=== PATIENT | female | born 1940 | race African-American/Black ===

== ENCOUNTER 2017-07-16 20:59 | Emergency (ER) | payer MEDICARE, MEDICAID ==
[~2017-07-16] VITALS: Ht 160 cm; Wt 66.7 kg
[~2017-07-16 20:59] MED LIST: ACETAMINOPHEN-1 EAC1 ORAL; ACETAMINOPHEN325 M1 ORAL; ACULAR LS OP S1 DROP BOTH EYES; AMANTADINE100 M2 ORAL; AMBIEN5 MG ORAL; AMLODIPINE BENAZ; AMLODIPINE BES2.5 MG ORAL; ANTIHYPERTENSIVE; ASPIR-LOW81 MG PO; ASPIRIN81 MG ORAL; BENADRYL50 MG/ML IVP; BENAZEPRIL HCL10 MG ORAL; BISACODYL5 MG ORAL; CARAFATE1 G1 ORAL; CARISOPRODOL350 MG ORAL; CARVEDILOL3.125 MG ORAL; CARVEDILOL6.25 MG ORAL; CHLORTHALIDONE25 MG ORAL; CHLORTHALIDONE25 MG PO; COLACE100 MG ORAL; CYMBALTA20 MG ORAL; DICLOFENAC SODI75 MG ORAL; DOCUSATE SODIU100 MG ORAL; DSS250 MG ORAL; DULCOLAX10 MG RC; DUONEB 0.5 MG-33 ML IH; DUONEB 0.5-3(2.53 ML HHN; FLEET ENEMA133 ML RECTAL; HYDROCODON-ACE1 EAC8 ORAL; LOPRESSOR50 MG PO; METOPROLOL SUCC50 MG ORAL; MILK OF MA400 MG/51 ORAL; MIRALAX17 G2 ORAL; MOM30 ML ORAL; MYLANTA II30 ML ORAL; NITRO-BID1 GM TOPIC; NITROGLYCERIN0.4 MG SL; NITROSTAT0.4 M1 SL; NORCO 10-325 T1 EACH ORAL; NORCO 5-325 TA1 EAC1 ORAL; NORCO 5-325 TA1 EACH ORAL; NORVASC10 MG ORAL; NORVASC2.5 MG ORAL; NORVASC5 MG ORAL; OLANZAPINE2.5 MG ORAL; PROPRANOLOL HCL10 MG PO; PROTONIX40 MG ORAL; PROTONIX40 MG PO; RANITIDINE50 MG/2 ML IV; RESTORIL15 MG ORAL; SOMA PO; SOMA350 MG BC; SOMA350 MG PO; TYLENOL #31 TAB PO; TYLENOL650 MG/20. ORAL; UNOBMED; VICODIN 5-5001 EACH PO; VIGAMOX1 DROP BOTH EYES; ZOFRAN 4 MG4 MG/2 ML IVP; ZYPREXA ZYDIS5 MG ORAL; ZYPREXA2.5 MG ORAL; [UNRECOGNIZED DRUG - REMARK]
--- NOTE | 2017-07-16 21:17 | Emergency Room Report ---
History of Present Illness General Chief Complaint: Chest Pain Source: Patient Present Illness HPI Is a 76-year-old female with a GI blood pressure. She presents with chief complaint of chest pain. It has been ongoing all day. Initially she came in as a Niki Narvaez. She look for pneumonia to me. I noticed that she has an armband in her purse. She was recently at a hospital in [place] about a week ago under her real name Niki Cox. I look up that name, she been here numerous times. She's also been to other outside hospital for same complaint. She has a history of chronic chest pain. She goes from different hospital. Workup has been negative. EMS gave her aspirin and nitroglycerin with did not help. Pain is chest. Achy nature. No exertional component. No diaphoresis. No shortness of breath. No radiation. Allergies: Coded Allergies: MORPHINE (Verified Adverse Reaction, Unknown, Itching, 08/20/15) Patient History Past Medical History: see triage record, old chart reviewed, HTN Past Surgical History: other Pertinent Family History: none Social History: Denies: smoking Last Menstrual Period: NONE Now: No Immunizations: other Reviewed Nursing Documentation: PMH: Agreed, PSxH: Agreed Nursing Documentation-PMH Hx Hypertension: Yes - HIGH CHOLESTEROL Review of Systems Eye: Denies: eye pain, blurred vision ENT: Denies: ear pain, nose congestion, throat swelling Respiratory: Denies: cough, shortness of breath Cardiovascular: Reports: chest pain, Denies: palpitations Gastrointestinal: Denies: abdominal pain, diarrhea, nausea, vomiting Musculoskeletal: Denies: back pain, joint pain Skin: Denies: rash Neurological: Denies: headache, numbness Endocrine: Denies: increased thirst, increased urine Hematologic/Lymphatic: Denies: easy bruising All Other Systems: negative except mentioned in HPI Physical Exam Vital Signs Date Time Temp Pulse Resp B/P (MAP) Pulse Ox O2 Delivery O2 Flow Rate FiO2 07/16/17 20:49 98.4 84 16 125/102 97 Room Air vitals unremarkable Sp02 EP Interpretation: reviewed, normal General Appearance: well appearing, no apparent distress, alert Head: normocephalic, atraumatic Eyes: bilateral eye PERRL, bilateral eye EOMI ENT: hearing grossly normal, normal pharynx Neck: full range of motion, supple, no meningismus Respiratory: chest non-tender, lungs clear, normal breath sounds Cardiovascular #1: regular rate, rhythm, no murmur Gastrointestinal: normal bowel sounds, non tender, no mass, no organomegaly, no bruit, non-distended Musculoskeletal: back normal, gait/station normal, normal range of motion Psychiatric: mood/affect normal Skin: warm/dry Medical Decision Making Diagnostic Impression: Primary Impression: Chest pain Qualified Codes: R07.9 - Chest pain, unspecified Additional Impression: Opiate dependence Qualified Codes: F11.20 - Opioid dependence, uncomplicated ER Course Patient presents with atypical chest pain. She been admitted and worked up multiple times at different hospitals already. I suspect there is a psychological component to this. No evidence of ACS, PE, dissection to name a few. No EKG changes. Troponin negative. We'll discharge home. She said that she is not homeless. EKG Diagnostic Results EKG Time: 21:16 Rate: normal Rhythm: NSR ST Segments: no acute changes Rhythm Strip Diag. Results Rhythm Strip Time: 21:16 EP Interpretation: yes Rate: 65 Rhythm: NSR Last Vital Signs Date Time Temp Pulse Resp B/P (MAP) Pulse Ox O2 Delivery O2 Flow Rate FiO2 07/16/17 20:49 98.4 84 16 125/102 97 Room Air Status: improved Disposition: HOME, SELF-CARE Condition: Stable Scripts Ibuprofen* (MOTRIN*) 600 Mg Tablet 600 MG ORAL THREE TIMES A DAY, #30 TAB 0 Refills Prov: FRED KUMAR M.D. 07/16/17 Patient Instructions: Nonspecific Chest Pain Additional Instructions: Followup with your DrLatonya in 7 days. Return if symptom worsen. FRED KUMAR M.D. Jul 16, 2017 21:17
[2017-07-16 22:15] LABS: TROPONIN I < 0.30 ng/mL (<=0.30)
[2017-07-16] MEDS ORDERED: Ketorolac 30mg Inj IV ONE (22:15)
[2017-07-16] MEDS ORDERED: IBUPROFEN600 MG ORAL (22:18)
[2017-07-16 22:30] VITALS: BP 137/62
--- NOTE | 2017-07-18 16:25 | Cardiology Report ---
APPROVED REPORT EKG Measurement Heart [id number] Normal sinus rhythm Nonspecific T wave abnormality Abnormal ECG
== END 2017-07-16 22:30 | disposition home or self-care (01) ==
LOC: EDUNIT# 20:59 → EDBD 20:59 → EMR 21:33
DX: R07.9 Chest pain, unspecified (principal); F11.20 Opioid dependence, uncomplicated; Z88.6 Allergy status to analgesic agent; I10 Essential (primary) hypertension
CPT/HCPCS: 84484; 93005; 96374; 99284

== ENCOUNTER 2017-07-30 01:42 | Emergency (ER) | payer MEDICARE, MEDICAID ==
[~2017-07-30] VITALS: Ht 160 cm; Wt 66.7 kg
[~2017-07-30 01:42] MED LIST changes: +IBUPROFEN600 MG ORAL; +METOPROLOL TART25 MG ORAL
--- NOTE | 2017-07-30 01:58 | Emergency Room Report ---
History of Present Illness General Chief Complaint: Chest Pain Source: Patient Present Illness HPI This is a 76-year-old female who said she's not homeless. She present with chief complaint of chest pain. This is a chronic problem for her. She's been to multiple hospital for the same thing. She was just at [facility] yesterday. She has a discharge paperwork in her purse. I saw her a couple weeks ago for the same thing. She presents with chest pain is in her chest. No radiation. No relief with aspirin or nitroglycerin by EMS. Denies any other complaint. No nausea no vomiting. No exertional component. No diaphoresis. No radiation. Allergies: Coded Allergies: MORPHINE (Verified Adverse Reaction, Unknown, Itching, 08/20/15) Patient History Past Medical History: see triage record, old chart reviewed Past Surgical History: other Pertinent Family History: none Social History: Denies: smoking Now: No Immunizations: other Reviewed Nursing Documentation: PMH: Agreed, PSxH: Agreed Nursing Documentation-PMH Past Medical History: No History, Except For Hx Hypertension: Yes Hx Pacemaker: No Hx COPD: Yes Hx Cancer: No Hx Gastrointestinal Problems: No Hx Neurological Problems: No Hx Vertigo: Yes Hx Dizziness: Yes Hx Syncope: Yes - "passed out once or twice," as per pt. Hx Headaches: Yes Hx Numbness: Yes - cramping in bilateral feet and hands at times Hx Weakness: Yes Hx Fatigue: Yes - loss of sleep Review of Systems Eye: Denies: eye pain, blurred vision ENT: Denies: ear pain, nose congestion, throat swelling Respiratory: Denies: cough, shortness of breath Cardiovascular: Reports: chest pain, Denies: palpitations Gastrointestinal: Denies: abdominal pain, diarrhea, nausea, vomiting Musculoskeletal: Denies: back pain, joint pain Skin: Denies: rash Neurological: Denies: headache, numbness Endocrine: Denies: increased thirst, increased urine Hematologic/Lymphatic: Denies: easy bruising All Other Systems: negative except mentioned in HPI Physical Exam Vital Signs Date Time Temp Pulse Resp B/P (MAP) Pulse Ox O2 Delivery O2 Flow Rate FiO2 07/30/17 01:34 98.2 70 16 143/86 96 Room Air vitals unremarkable Sp02 EP Interpretation: reviewed, normal General Appearance: well appearing, no apparent distress, alert Head: normocephalic, atraumatic Eyes: bilateral eye PERRL, bilateral eye EOMI ENT: hearing grossly normal, normal pharynx Neck: full range of motion, supple, no meningismus Respiratory: chest non-tender, lungs clear, normal breath sounds Cardiovascular #1: regular rate, rhythm, no murmur Gastrointestinal: normal bowel sounds, non tender, no mass, no organomegaly, no bruit, non-distended Musculoskeletal: back normal, gait/station normal, normal range of motion, other - She has multiple bruises from IV stick and her upper extremities. Psychiatric: mood/affect normal Skin: warm/dry Medical Decision Making Diagnostic Impression: Primary Impression: Chest pain Qualified Codes: R07.9 - Chest pain, unspecified ER Course Patient presents with chest pain. I suspect there is a high psychogenic component to this. She has very poor IV access. I attempted to do an arterial stick for blood. Patient keep jerking away. I did one stick had a flash but the patient pulled back. Attempted to do again but she refused. She said that she doesn't want to stay any longer. Patient is otherwise stable. She is competent to make that decision. I highly doubt that her chest pain is cardiac in nature. But because of her age I want to rule out with workup. Her pain been ongoing for several hours now. patient decided to stay. We'll check troponin. I gave her Motrin for pain. EKG Diagnostic Results Rate: normal Rhythm: NSR ST Segments: no acute changes Rhythm Strip Diag. Results EP Interpretation: yes Rate: 65 Rhythm: NSR Last Vital Signs Date Time Temp Pulse Resp B/P (MAP) Pulse Ox O2 Delivery O2 Flow Rate FiO2 07/30/17 01:34 98.2 70 16 143/86 96 Room Air Status: unchanged Disposition: HOME, SELF-CARE Condition: Stable Patient Instructions: Nonspecific Chest Pain Additional Instructions: Followup with your Dr. in 7 days. If symptom worsen. You may take Motrin for your pain. FRED KUMAR M.D. Jul 30, 2017 01:58
[2017-07-30 02:05] VITALS: BP 140/82
[2017-07-30 02:33] LABS: TROPONIN I < 0.30 ng/mL (<=0.30)
[2017-07-30 03:10] VITALS: BP 138/79
[2017-07-30 03:20] VITALS: BP 136/72
--- NOTE | 2017-07-30 19:03 | Cardiology Report ---
APPROVED REPORT EKG Measurement Heart [id number] Normal sinus rhythm Nonspecific T wave abnormality Abnormal ECG
== END 2017-07-30 03:05 | disposition home or self-care (01) ==
LOC: EDBD 01:42 → EMR 01:55
DX: R07.9 Chest pain, unspecified (principal); I10 Essential (primary) hypertension; J44.9 Chronic obstructive pulmonary disease, unspecified
CPT/HCPCS: 84484; 93005; 99283

== ENCOUNTER 2017-07-30 04:45 | Emergency (ER) | payer MEDICARE, MEDICAID ==
[~2017-07-30] VITALS: Ht 160 cm; Wt 65.8 kg
[2017-07-30 04:45] VITALS: BP 146/81
--- NOTE | 2017-07-30 05:02 | Emergency Room Report ---
History of Present Illness General Chief Complaint: General Complaint Source: Patient Present Illness HPI Is a 76-year-old female whom I saw earlier this evening. Patient has history of chronic chest pain and narcotic seeking. She was just discharged from one [facility]. She's been to several hospital and recently. She had negative troponin here. She has chronic chest pain has been ongoing for months and years. She was discharged and was walking toward [facility]. She said her car 911 was brought back here. EMS gave her nitroglycerin and aspirin and it didn't do anything for her. She is requesting narcotic. No other complaint. No exertional component. No diaphoresis. No radiation. No shortness of breath. Allergies: Coded Allergies: MORPHINE (Verified Adverse Reaction, Unknown, Itching, 08/20/15) Patient History Past Medical History: see triage record, old chart reviewed Past Surgical History: other Pertinent Family History: none Social History: Denies: drug use Now: No Immunizations: other Reviewed Nursing Documentation: PMH: Agreed, PSxH: Agreed Nursing Documentation-PMH Hx Hypertension: Yes Hx Pacemaker: No Hx COPD: Yes Hx Cancer: No Hx Gastrointestinal Problems: No Hx Neurological Problems: No Hx Vertigo: Yes Hx Dizziness: Yes Hx Syncope: Yes - "passed out once or twice," as per pt. Hx Headaches: Yes Hx Numbness: Yes - cramping in bilateral feet and hands at times Hx Weakness: Yes Hx Fatigue: Yes - loss of sleep Review of Systems Eye: Denies: eye pain, blurred vision ENT: Denies: ear pain, nose congestion, throat swelling Respiratory: Denies: cough, shortness of breath Cardiovascular: Reports: chest pain, Denies: palpitations Gastrointestinal: Denies: abdominal pain, diarrhea, nausea, vomiting Musculoskeletal: Denies: back pain, joint pain Skin: Denies: rash Neurological: Denies: headache, numbness Endocrine: Denies: increased thirst, increased urine Hematologic/Lymphatic: Denies: easy bruising All Other Systems: negative except mentioned in HPI Physical Exam Vital Signs Date Time Temp Pulse Resp B/P (MAP) Pulse Ox O2 Delivery O2 Flow Rate FiO2 07/30/17 04:36 98.2 77 20 146/81 99 Room Air vitals normal Sp02 EP Interpretation: reviewed, normal General Appearance: well appearing, no apparent distress, alert Head: normocephalic, atraumatic Eyes: bilateral eye PERRL, bilateral eye EOMI ENT: hearing grossly normal, normal pharynx Neck: full range of motion, supple, no meningismus Respiratory: chest non-tender, lungs clear, normal breath sounds Cardiovascular #1: regular rate, rhythm, no murmur Gastrointestinal: normal bowel sounds, non tender, no mass, no organomegaly, no bruit, non-distended Musculoskeletal: back normal, gait/station normal, normal range of motion Neurologic: alert, oriented x3 Psychiatric: mood/affect normal Skin: warm/dry Medical Decision Making Diagnostic Impression: Primary Impression: Chest pain Qualified Codes: R07.9 - Chest pain, unspecified Additional Impression: Opiate dependence Qualified Codes: F11.20 - Opioid dependence, uncomplicated ER Course Patient presents with her typical chest pain. She has multiple workup in the past. I see no need for further workup here. She claimed that she's not homeless. She has a place to go. We'll discharge home. I see no evidence of ACS, PE, dissection, pneumonia to name a few. Last Vital Signs Date Time Temp Pulse Resp B/P (MAP) Pulse Ox O2 Delivery O2 Flow Rate FiO2 07/30/17 04:45 98.2 77 20 146/81 99 Room Air Status: unchanged Disposition: HOME, SELF-CARE Condition: Stable Additional Instructions: Followup with your Dr. in 7 days. Take Motrin for your pain. Return if worse. FRED KUMAR M.D. Jul 30, 2017 05:02
[2017-07-30 05:08] VITALS: BP 146/81
== END 2017-07-30 05:15 | disposition home or self-care (01) ==
LOC: EDBD 04:45 → EMR 05:10
DX: R07.9 Chest pain, unspecified (principal); F11.20 Opioid dependence, uncomplicated; Z88.6 Allergy status to analgesic agent; I10 Essential (primary) hypertension; J44.9 Chronic obstructive pulmonary disease, unspecified
CPT/HCPCS: 99282

== ENCOUNTER 2017-08-08 18:34 | Emergency (ER) | payer MEDICARE, MEDICAID ==
[~2017-08-08] VITALS: Ht 160 cm; Wt 66.7 kg
[2017-08-08 19:25] LABS: MEAN CORPUSCULAR HGB CONC 32.3 G/DL (32.0-36.0); MEAN CORPUSCULAR VOLUME 93 FL (80-99); MEAN PLATELET VOLUME 6.8 FL (6.5-10.1); PLATELET COUNT 202 K/UL (150-450); RED BLOOD COUNT 3.79 M/UL (4.20-5.40); RED CELL DISTRIBUTION WIDTH 12.7 % (11.6-14.8); WHITE BLOOD COUNT 3.4 K/UL (4.8-10.8)
[2017-08-08 19:27] LABS: BASOPHILS % (AUTO) 0.6 % (0.0-2.0); EOSINOPHILS % (AUTO) 2.1 % (0.0-3.0); LYMPHOCYTES % (AUTO) 44.7 % (20.0-45.0); NEUTROPHILS % (AUTO) 46.6 % (45.0-75.0)
[2017-08-08 19:41] LABS: TROPONIN I < 0.30 ng/mL (<=0.30)
[2017-08-08 19:44] LABS: ALANINE AMINOTRANSFERASE 9 U/L (3-33); ALBUMIN/GLOBULIN RATIO 1.6 (1.0-2.7); ANION GAP 10 (5-15); ASPARTATE AMINO TRANSFERASE 15 U/L (5-40); CALCIUM 9.3 mg/dL (8.6-10.2); CARBON DIOXIDE 28 mEQ/L (20-30); CHLORIDE 104 mEQ/L (98-107); CREATININE 0.7 mg/dL (0.5-0.9); HEMOLYSIS 2; POTASSIUM 3.5 mEQ/L (3.4-4.9); SODIUM 142 mEQ/L (135-145); TOTAL PROTEIN 6.8 g/dL (6.6-8.7)
[2017-08-08 20:25] VITALS: BP 153/86
[2017-08-08 20:34] VITALS: BP 153/86
--- NOTE | 2017-08-08 21:48 | Emergency Room Report ---
History of Present Illness General Chief Complaint: Chest Pain Source: Patient, EMS Present Illness HPI 77-year-old female presents to ED complaining of chest pain. States chest pain started approximately 30 minutes prior to arrival. Pain is sharp, left-sided, 10 out of 10. Patient was given aspirin and nitroglycerin by EMS without relief. Per EMS patient comes to hospital multiple times for similar presentation. Patient is well-known to home she has been here multiple times under this name and other names. Denies smoking or drug use. No other aggravating or leading factors. Denies any other associated symptoms Allergies: Coded Allergies: MORPHINE (Verified Adverse Reaction, Unknown, Itching, 08/20/15) Patient History Past Medical History: HTN, COPD Past Surgical History: none Pertinent Family History: none Social History: Denies: smoking, alcohol use, drug use Now: No Immunizations: UTD Reviewed Nursing Documentation: PMH: Agreed, PSxH: Agreed Nursing Documentation-PMH Hx Hypertension: Yes Hx Pacemaker: No Hx COPD: Yes Hx Cancer: No Hx Gastrointestinal Problems: No Hx Neurological Problems: No Hx Vertigo: Yes Hx Dizziness: Yes Hx Syncope: Yes - "passed out once or twice," as per pt. Hx Headaches: Yes Hx Numbness: Yes - cramping in bilateral feet and hands at times Hx Weakness: Yes Hx Fatigue: Yes - loss of sleep Review of Systems All Other Systems: negative except mentioned in HPI Physical Exam Vital Signs Date Time Temp Pulse Resp B/P (MAP) Pulse Ox O2 Delivery O2 Flow Rate FiO2 08/08/17 18:41 97.9 86 18 154/86 98 Room Air Sp02 EP Interpretation: reviewed, normal General Appearance: no apparent distress, alert, GCS 15, non-toxic Head: normocephalic, atraumatic Eyes: bilateral eye normal inspection, bilateral eye PERRL ENT: hearing grossly normal, normal pharynx, no angioedema, normal voice Neck: full range of motion, supple/symm/no masses Respiratory: chest non-tender, lungs clear, normal breath sounds, speaking full sentences Cardiovascular #1: regular rate, rhythm, no edema Cardiovascular #2: 2+ carotid (R), 2+ carotid (L), 2+ radial (R), 2+ radial (L) , 2+ dorsalis pedis (R), 2+ dorsalis pedis (L) Gastrointestinal: normal bowel sounds, non tender, soft, non-distended, no guarding, no rebound Rectal: deferred Genitourinary: normal inspection, no CVA tenderness Musculoskeletal: back normal, gait/station normal, normal range of motion, non- tender Neurologic: alert, oriented x3, responsive, motor strength/tone normal, sensory intact, speech normal Psychiatric: judgement/insight normal, memory normal, mood/affect normal, no suicidal/homicidal ideation Reflexes: 3+ bicep (R), 3+ bicep (L), 3+ tricep (R), 3+ tricep (L), 3+ knee (R) , 3+ knee (L) Skin: normal color, no rash, warm/dry, well hydrated Lymphatic: no adenopathy Medical Decision Making Diagnostic Impression: Primary Impression: Chest pain Additional Impression: Opiate dependence Qualified Codes: F11.29 - Opioid dependence with unspecified opioid-induced disorder ER Course Hospital Course 77-year-old F presents ED complaining of chest pain Differential diagnoses include: Rib fracture, PA/unstable angina, contusion, muscle strain Clinical course Patient placed on stretcher. After initial history and physical I ordered labs , EKG labs reviewed- all electrolytes normal, troponins negative, no leukocytosis, hemoglobin/hematocrit stable EKG - NSR, no acute ischemic changes interpreted by me I reviewed EMR. Patient has been here 3 times this month for similar chest pain. Patient always requesting narcotic medications. Patient refuses workup and treatment when she is offered non-narcotic medications Patient refuses Tylenol here. Wants to be discharged I. I feel this is a highly complex case requiring extensive working including EKG/Rhythm strip, Xray/CT/US, Blood/urine lab work, repeat exams while in ED, and administration of strong opiates/narcotics for pain control, admission to hospital or close patient follow up. Diagnosis - chest pain , opiate dependence Stable and discharged to home. Instructed to followup with PMD. Return to ED if symptoms recur or worsen Labs Test 08/08/17 19:14 White Blood Count 3.4 K/UL (4.8-10.8) Red Blood Count 3.79 M/UL (4.20-5.40) Hemoglobin 11.4 G/DL (12.0-16.0) Hematocrit 35.3 % (37.0-47.0) Mean Corpuscular Volume 93 FL (80-99) Mean Corpuscular Hemoglobin 30.0 PG (27.0-31.0) Mean Corpuscular Hemoglobin Concent 32.3 G/DL (32.0-36.0) Red Cell Distribution Width 12.7 % (11.6-14.8) Platelet Count 202 K/UL (150-450) Mean Platelet Volume 6.8 FL (6.5-10.1) Neutrophils (%) (Auto) 46.6 % (45.0-75.0) Lymphocytes (%) (Auto) 44.7 % (20.0-45.0) Monocytes (%) (Auto) 6.0 % (1.0-10.0) Eosinophils (%) (Auto) 2.1 % (0.0-3.0) Basophils (%) (Auto) 0.6 % (0.0-2.0) Sodium Level 142 mEQ/L (135-145) Potassium Level 3.5 mEQ/L (3.4-4.9) Chloride Level 104 mEQ/L (98-107) Carbon Dioxide Level 28 mEQ/L (20-30) Anion Gap 10 (5-15) Blood Urea Nitrogen 13 mg/dL (7-23) Creatinine 0.7 mg/dL (0.5-0.9) Estimat Glomerular Filtration Rate mL/min (>60) Glucose Level 86 mg/dL (74-106) Calcium Level 9.3 mg/dL (8.6-10.2) Total Bilirubin 0.3 mg/dL (0.0-1.2) Aspartate Amino Transf (AST/SGOT) 15 U/L (5-40) Alanine Aminotransferase (ALT/SGPT) 9 U/L (3-33) Alkaline Phosphatase 47 U/L (35-104) Troponin I < 0.30 ng/mL (<=0.30) Total Protein 6.8 g/dL (6.6-8.7) Albumin 4.2 g/dL (3.5-5.2) Globulin 2.6 g/dL Albumin/Globulin Ratio 1.6 (1.0-2.7) EKG Diagnostic Results Rate: normal Rhythm: NSR ST Segments: no acute changes ASA given to the pt in ED: No Rhythm Strip Diag. Results EP Interpretation: yes Rhythm: NSR, no PVC's, no ectopy Last Vital Signs Date Time Temp Pulse Resp B/P (MAP) Pulse Ox O2 Delivery O2 Flow Rate FiO2 08/08/17 20:34 77 24 153/86 99 Room Air 08/08/17 20:25 97.9 Status: improved Disposition: HOME, SELF-CARE Condition: Improved Referrals: NOT CHOSEN IPA/,REFERRING (PCP) Patient Instructions: Nonspecific Chest Pain PAMELA ROSARIO M.D. Aug 08, 2017 21:48
== END 2017-08-08 20:30 | disposition home or self-care (01) ==
LOC: EDBD 18:34 → EMR 20:00
DX: R07.89 Other chest pain (principal); F11.20 Opioid dependence, uncomplicated; I10 Essential (primary) hypertension; J44.9 Chronic obstructive pulmonary disease, unspecified; Z88.6 Allergy status to analgesic agent
CPT/HCPCS: 36415; 80053; 84484; 85025; 93005; 99284

== ENCOUNTER 2018-05-06 23:03 | Emergency (ER) | payer MEDICARE, OTHER ==
[~2018-05-06] VITALS: Ht 160 cm; Wt 75.3 kg
[2018-05-06] MEDS ORDERED: Aspirin Baby 81mg ORAL ONE (23:45)
[2018-05-06 23:54] LABS: APPEARANCE,URINE CLEAR; BILIRUBIN, URINE NEGATIVE (NEGATIVE); COLOR,URINE PALE YELLOW; GLUCOSE, URINE (UA) NEGATIVE (NEGATIVE); KETONES,URINE NEGATIVE (NEGATIVE); LEUKOCYTE ESTERASE ,URINE 2+ (NEGATIVE); NITRITE,URINE NEGATIVE (NEGATIVE); PH,URINE 6 (4.5-8.0); PROTEIN,URINE NEGATIVE (NEGATIVE); UROBILINOGEN,URINE NORMAL MG/DL (0.0-1.0)
[2018-05-07] MEDS ORDERED: CEPHALEXIN500 MG ORAL (00:22)
--- NOTE | 2018-05-07 00:22 | Emergency Room Report ---
History of Present Illness General Chief Complaint: Chest Pain Source: Patient Present Illness HPI Is a 77-year-old female well-known to this ER. She presents with chief complaint of chest pain. This is a chronic issue for her. She has chronic chest pain. Workup has been negative. She said his been ongoing for last 2 days patient she's been to multiple hospitals. She said she was recently at [facility] in [place]. Pain has no radiation. She is asking for narcotic. No diaphoresis patient walking without any difficulty. Her second complaint is pelvic pain. She said she has some dysuria has been ongoing for 2 days also. No fever chills but no nausea no vomiting. No hematuria. Allergies: Coded Allergies: MORPHINE (Verified Adverse Reaction, Unknown, Itching, 08/20/15) Patient History Past Medical History: see triage record, old chart reviewed Past Surgical History: other Pertinent Family History: none Social History: Denies: smoking Last Menstrual Period: NA Now: No Immunizations: other Reviewed Nursing Documentation: PMH: Agreed; PSxH: Agreed Nursing Documentation-PMH Hx Hypertension: Yes Hx Pacemaker: No Hx COPD: Yes Hx Cancer: No Hx Gastrointestinal Problems: No Hx Neurological Problems: No Hx Vertigo: Yes Hx Dizziness: Yes Hx Syncope: Yes - "passed out once or twice," as per pt. Hx Headaches: Yes Hx Numbness: Yes - cramping in bilateral feet and hands at times Hx Weakness: Yes Hx Fatigue: Yes - loss of sleep Review of Systems Eye: Denies: eye pain, blurred vision ENT: Denies: ear pain, nose congestion, throat swelling Respiratory: Denies: cough, shortness of breath Cardiovascular: Reports: chest pain; Denies: palpitations Gastrointestinal: Denies: abdominal pain, diarrhea, nausea, vomiting Genitourinary: Reports: dysuria Musculoskeletal: Denies: back pain, joint pain Skin: Denies: rash Neurological: Denies: headache, numbness Endocrine: Denies: increased thirst, increased urine Hematologic/Lymphatic: Denies: easy bruising All Other Systems: negative except mentioned in HPI Physical Exam Vital Signs Date Time Temp Pulse Resp B/P (MAP) Pulse Ox O2 Delivery O2 Flow Rate FiO2 05/06/18 23:05 97.7 80 18 109/69 98 Room Air 97.7 vitals normal Sp02 EP Interpretation: reviewed, normal General Appearance: well appearing, no apparent distress, alert Head: normocephalic, atraumatic Eyes: bilateral eye PERRL, bilateral eye EOMI ENT: hearing grossly normal, normal pharynx Neck: full range of motion, supple, no meningismus Respiratory: chest non-tender, lungs clear, normal breath sounds Cardiovascular #1: regular rate, rhythm, no murmur Gastrointestinal: normal bowel sounds, non tender, no mass, no organomegaly, no bruit, non-distended Musculoskeletal: back normal, gait/station normal, normal range of motion Psychiatric: mood/affect normal Skin: warm/dry Medical Decision Making Diagnostic Impression: Primary Impression: Chest pain Qualified Codes: R07.9 - Chest pain, unspecified Additional Impressions: Chronic pain Qualified Codes: G89.4 - Chronic pain syndrome Opiate dependence Qualified Codes: F11.20 - Opioid dependence, uncomplicated UTI (urinary tract infection) Qualified Codes: N30.00 - Acute cystitis without hematuria ER Course Patient presents with chronic chest pain. She keep asking for narcotics. I see no evidence of ACS, PE, dissection. She may have a mild urinary tract infection. We'll go ahead and treat. We'll discharge home. EKG Diagnostic Results Rate: normal Rhythm: NSR ST Segments: no acute changes Rhythm Strip Diag. Results Rhythm Strip Time: 00:21 EP Interpretation: yes Rate: 70 Rhythm: NSR, no PVC's, no ectopy Last Vital Signs Date Time Temp Pulse Resp B/P (MAP) Pulse Ox O2 Delivery O2 Flow Rate FiO2 05/06/18 23:44 80 18 Room Air 05/06/18 23:05 97.7 109/69 98 97.7 Status: unchanged Disposition: HOME, SELF-CARE Condition: Stable Scripts Cephalexin* (KEFLEX*) 500 Mg Capsule 500 MG ORAL TID, #21 CAP Prov: FRED KUMAR M.D. 05/07/18 Patient Instructions: Nonspecific Chest Pain Additional Instructions: follow-up with your DrLatonya in 2-3 days. Return if symptoms worsen. FRED KUMAR M.D. May 07, 2018 00:22
[2018-05-07 00:29] VITALS: BP 109/69
[2018-05-07] MEDS ORDERED: Cephalexin 500mg cap ORAL ONE (00:30)
== END 2018-05-07 00:29 | disposition home or self-care (01) ==
LOC: EMR 23:30
DX: R07.9 Chest pain, unspecified (principal); G89.29 Other chronic pain; I10 Essential (primary) hypertension; J44.9 Chronic obstructive pulmonary disease, unspecified; Z88.5 Allergy status to narcotic agent; N39.0 Urinary tract infection, site not specified; F11.20 Opioid dependence, uncomplicated
CPT/HCPCS: 81003; 84484; 93005; 99281

== ENCOUNTER 2018-05-07 02:12 | Emergency (ER) | payer MEDICARE, OTHER ==
[~2018-05-07 02:12] MED LIST changes: +CEPHALEXIN500 MG ORAL
--- NOTE | 2018-05-07 02:26 | Emergency Room Report ---
History of Present Illness General Source: Patient, Medical Record, EMS Present Illness HPI Is a 77-year-old female with a history of chronic chest pain. She presents with chief complaint of chest pain. She was just seen and discharged not too long ago. [place] was at the bus stop and walked about a block away and called 911. They brought her back. They gave her nitroglycerin and aspirin. Did not help with her pain. She told me that she is not homeless. On arrival she wanted pain medication. Pain is been ongoing for the last 2 days. No other complaint. No radiation. Nothing made it better. Nothing made it worse. Allergies: Coded Allergies: MORPHINE (Verified Adverse Reaction, Unknown, Itching, 08/20/15) Patient History Past Medical History: see triage record, old chart reviewed Past Surgical History: other Pertinent Family History: none Social History: Denies: smoking Now: No Immunizations: other Reviewed Nursing Documentation: PMH: Agreed; PSxH: Agreed Nursing Documentation-PMH Hx Hypertension: Yes Hx Pacemaker: No Hx COPD: Yes Hx Cancer: No Hx Gastrointestinal Problems: No Hx Neurological Problems: No Hx Vertigo: Yes Hx Dizziness: Yes Hx Syncope: Yes - "passed out once or twice," as per pt. Hx Headaches: Yes Hx Numbness: Yes - cramping in bilateral feet and hands at times Hx Weakness: Yes Hx Fatigue: Yes - loss of sleep Review of Systems Eye: Denies: eye pain, blurred vision ENT: Denies: ear pain, nose congestion, throat swelling Respiratory: Denies: cough, shortness of breath Cardiovascular: Reports: chest pain; Denies: palpitations Gastrointestinal: Denies: abdominal pain, diarrhea, nausea, vomiting Musculoskeletal: Denies: back pain, joint pain Skin: Denies: rash Neurological: Denies: headache, numbness Endocrine: Denies: increased thirst, increased urine Hematologic/Lymphatic: Denies: easy bruising All Other Systems: negative except mentioned in HPI Physical Exam patient refused vitals Sp02 EP Interpretation: reviewed, normal General Appearance: well appearing, no apparent distress, alert Head: normocephalic, atraumatic Eyes: bilateral eye PERRL, bilateral eye EOMI ENT: hearing grossly normal, normal pharynx Neck: full range of motion, supple, no meningismus Respiratory: chest non-tender, lungs clear, normal breath sounds Cardiovascular #1: regular rate, rhythm, no murmur Gastrointestinal: normal bowel sounds, non tender, no mass, no organomegaly, no bruit, non-distended Musculoskeletal: back normal, gait/station normal, normal range of motion Psychiatric: mood/affect normal Skin: warm/dry Medical Decision Making Diagnostic Impression: Primary Impression: Chest pain Qualified Codes: R07.9 - Chest pain, unspecified Additional Impressions: Opiate dependence Qualified Codes: F11.20 - Opioid dependence, uncomplicated Chronic pain Qualified Codes: G89.4 - Chronic pain syndrome ER Course Patient with chronic pain. When I told her that I would not give her narcotics , she got up and walked out of the ER. She did not get any vitals because she left prior to this. Status: unchanged Disposition: HOME, SELF-CARE Condition: Stable FRED KUMAR M.D. May 07, 2018 02:26
== END 2018-05-07 03:00 | disposition left against medical advice (07) ==
LOC: EDBD 02:12 → EMR 02:30
DX: R07.9 Chest pain, unspecified (principal); G89.29 Other chronic pain; F11.20 Opioid dependence, uncomplicated; I10 Essential (primary) hypertension; J44.9 Chronic obstructive pulmonary disease, unspecified
CPT/HCPCS: 99283

== ENCOUNTER 2018-08-09 16:51 | Emergency (ER) | payer MEDICARE, OTHER ==
[~2018-08-09] VITALS: Ht 157.5 cm; Wt 77.1 kg
[2018-08-09] MEDS ORDERED: NKM (16:54)
[2018-08-09 17:27] LABS: EOSINOPHILS % (AUTO) 1.5 % (0.0-3.0); HEMOGLOBIN 11.4 G/DL (12.0-16.0); LYMPHOCYTES % (AUTO) 40.8 % (20.0-45.0); MEAN CORPUSCULAR VOLUME 89 FL (80-99); MONOCYTES % (AUTO) 7.8 % (1.0-10.0); NEUTROPHILS % (AUTO) 48.9 % (45.0-75.0); PLATELET COUNT 246 K/UL (150-450); RED BLOOD COUNT 3.69 M/UL (4.20-5.40); WHITE BLOOD COUNT 4.1 K/UL (4.8-10.8)
[2018-08-09] MEDS ORDERED: Acetaminophen 500mg (ES) tab ORAL ONE (17:30)
[2018-08-09 17:36] LABS: ANION GAP 8 mmol/L (5-15); BLOOD UREA NITROGEN 14 mg/dL (7-18); CALCIUM 8.8 MG/DL (8.5-10.1); CARBON DIOXIDE 27 MMOL/L (21-32); CHLORIDE 105 MMOL/L (98-107); CREATININE 0.8 MG/DL (0.55-1.30); POTASSIUM 3.2 MMOL/L (3.5-5.1); SODIUM 140 MMOL/L (136-145)
--- NOTE | 2018-08-09 17:41 | Emergency Room Report ---
History of Present Illness General Chief Complaint: Chest Pain Source: Patient, EMS Present Illness HPI Patient is a 78-year-old female who presented after chest pain. Patient reports having the pain for 2 days. This of been constant in nature. Patient had multiple the previous visits for similar type symptoms. Patient had prior history of costochondritis. The patient reportedly had been out of her pain medications. She had previously been on opiate pain medications for similar symptoms. She was noted to have some swelling to her legs. Allergies: Coded Allergies: MORPHINE (Verified Adverse Reaction, Unknown, Itching, 08/20/15) Patient History Past Medical History: see triage record Now: No Reviewed Nursing Documentation: PMH: Agreed; PSxH: Agreed Nursing Documentation-PMH Hx Hypertension: Yes Hx Pacemaker: No Hx COPD: Yes Hx Cancer: No Hx Gastrointestinal Problems: No Hx Neurological Problems: No Hx Vertigo: Yes Hx Dizziness: Yes Hx Syncope: Yes - "passed out once or twice," as per pt. Hx Headaches: Yes Hx Numbness: Yes - cramping in bilateral feet and hands at times Hx Weakness: Yes Hx Fatigue: Yes - loss of sleep Review of Systems All Other Systems: negative except mentioned in HPI Physical Exam Vital Signs Date Time Temp Pulse Resp B/P (MAP) Pulse Ox O2 Delivery O2 Flow Rate FiO2 08/09/18 16:48 98.1 87 14 145/79 99 Room Air 98.1 Sp02 EP Interpretation: reviewed, normal General Appearance: normal inspection, well appearing, no apparent distress, alert, GCS 15, non-toxic Head: atraumatic ENT: normal ENT inspection, hearing grossly normal, normal voice Neck: normal inspection, full range of motion, supple, no bony tend Respiratory: normal inspection, lungs clear, normal breath sounds, no respiratory distress, no retraction, no wheezing Cardiovascular #1: regular rate, rhythm, no edema Gastrointestinal: normal inspection, normal bowel sounds, non tender, soft, no guarding, no hernia Genitourinary: no CVA tenderness Musculoskeletal: normal inspection, back normal, normal range of motion Neurologic: normal inspection, alert, oriented x3, responsive, [employer] III-XII nml as tested, speech normal Psychiatric: normal inspection, judgement/insight normal, mood/affect normal Skin: normal inspection, normal color, no rash, other Medical Decision Making Diagnostic Impression: Primary Impression: Chronic pain Additional Impressions: COPD (chronic obstructive pulmonary disease) Costochondritis Opiate dependence ER Course Patient presented for chest pain. Differential diagnosis included but was not limited to acute coronary syndrome, pulmonary embolism, pneumonia, aortic dissection, shingles, pneumothorax, aortic dissection, esophageal rupture, pericarditis. Because of complexity of patient's case laboratory testing and imaging studies were ordered.The EKG interpreted by me showed normal sinus rhythm with a rate of [address] or T wave changes.Patient given aspirin in the field.The patient was given the pain medications as well as oral diuretic. The patient appears have chronic pain. The patient appears to have her usual presentation of chest pain which appears to musculoskeletal.She does not show any evidence of myocardial infarction on laboratory testing the patient is advised follow-up with her primary care physician for reevaluation treatment.The patient is advised to follow up with primary care doctor in 2-3 days. Patient is advised to return if any worsening condition or if any changes in status that are concerning. This report is dictated with [employer] director software which may occasionally lead to discrepancies related to use of this software. Labs Test 08/09/18 17:15 White Blood Count 4.1 K/UL (4.8-10.8) Red Blood Count 3.69 M/UL (4.20-5.40) Hemoglobin 11.4 G/DL (12.0-16.0) Hematocrit 33.0 % (37.0-47.0) Mean Corpuscular Volume 89 FL (80-99) Mean Corpuscular Hemoglobin 30.8 PG (27.0-31.0) Mean Corpuscular Hemoglobin Concent 34.5 G/DL (32.0-36.0) Red Cell Distribution Width 14.0 % (11.6-14.8) Platelet Count 246 K/UL (150-450) Mean Platelet Volume 5.9 FL (6.5-10.1) Neutrophils (%) (Auto) 48.9 % (45.0-75.0) Lymphocytes (%) (Auto) 40.8 % (20.0-45.0) Monocytes (%) (Auto) 7.8 % (1.0-10.0) Eosinophils (%) (Auto) 1.5 % (0.0-3.0) Basophils (%) (Auto) 1.0 % (0.0-2.0) D-Dimer 0.27 mg/L FEU (0.00-0.49) Sodium Level 140 MMOL/L (136-145) Potassium Level 3.2 MMOL/L (3.5-5.1) Chloride Level 105 MMOL/L (98-107) Carbon Dioxide Level 27 MMOL/L (21-32) Anion Gap 8 mmol/L (5-15) Blood Urea Nitrogen 14 mg/dL (7-18) Creatinine 0.8 MG/DL (0.55-1.30) Estimat Glomerular Filtration Rate mL/min (>60) Glucose Level 98 MG/DL (74-106) Calcium Level 8.8 MG/DL (8.5-10.1) Total Bilirubin 0.4 MG/DL (0.2-1.0) Aspartate Amino Transf (AST/SGOT) 17 U/L (15-37) Alanine Aminotransferase (ALT/SGPT) 21 U/L (12-78) Alkaline Phosphatase 60 U/L (46-116) Total Creatine Kinase 166 U/L (26-308) Creatine Kinase MB 1.0 NG/ML (0.0-3.6) Creatine Kinase MB Relative Index 0.6 Troponin I 0.000 ng/mL (0.000-0.056) Total Protein 7.5 G/DL (6.4-8.2) Albumin 4.0 G/DL (3.4-5.0) Globulin 3.5 g/dL Albumin/Globulin Ratio 1.1 (1.0-2.7) Urine Opiates Screen Positive (NEGATIVE) Urine Barbiturates Screen Negative (NEGATIVE) Phencyclidine (PCP) Screen Negative (NEGATIVE) Urine Amphetamines Screen Negative (NEGATIVE) Urine Benzodiazepines Screen Negative (NEGATIVE) Urine Cocaine Screen Negative (NEGATIVE) Urine Marijuana (THC) Screen Negative (NEGATIVE) Last Vital Signs Date Time Temp Pulse Resp B/P (MAP) Pulse Ox O2 Delivery O2 Flow Rate FiO2 08/09/18 17:35 98.1 08/09/18 17:12 Room Air 08/09/18 16:48 87 14 145/79 99 Status: improved Disposition: HOME, SELF-CARE Condition: Scripts Hydrochlorothiazide* (HYDROCHLOROTHIAZIDE*) 25 Mg Tablet 25 MG ORAL DAILY, #30 TAB Prov: Joseluis Real MD 08/09/18 Acetaminophen* (ACETAMINOPHEN EXTRA STRENGTH*) 500 Mg Tablet 500 MG ORAL Q8H PRN for Fever/Headache/Mild Pain, #30 TAB Prov: Joseluis Real MD 08/09/18 Referrals: NOT CHOSEN IPA/,REFERRING (PCP) Joseluis Real MD Aug 09, 2018 17:41
[2018-08-09] MEDS ORDERED: HydrOXYzine tab 25mg tab ORAL ONE (17:45)
[2018-08-09 17:52] LABS: ALANINE AMINOTRANSFERASE 21 U/L (12-78); ALBUMIN/GLOBULIN RATIO 1.1 (1.0-2.7); ALKALINE PHOSPHATASE 60 U/L (46-116); ASPARTATE AMINO TRANSFERASE 17 U/L (15-37); BILIRUBIN,TOTAL 0.4 MG/DL (0.2-1.0); CREATINE KINASE 166 U/L (26-308)
--- NOTE | 2018-08-09 17:53 | Diagnostic Imaging Report ---
Indication: Reason For Exam: CP Technique: One view of the chest Comparison: 10/22/2016 Findings: No acute infiltrates, effusions, or congestion. Tortuous calcified aorta. Normal heart size. Upper mediastinum unremarkable. No significant change Impression: No acute process.
[2018-08-09 18:14] VITALS: BP 131/71
[2018-08-09] MEDS ORDERED: ACETAMINOPHEN500 M3 ORAL (18:33)
[2018-08-09] MEDS ORDERED: HYDROCHLOROTHIA25 MG ORAL (18:33)
[2018-08-09 19:05] VITALS: BP 131/71
--- NOTE | 2018-08-13 19:12 | Cardiology Report ---
APPROVED REPORT EKG Measurement Heart [id number] Normal sinus rhythm Nonspecific T wave abnormality Abnormal ECG
== END 2018-08-09 19:06 | disposition home or self-care (01) ==
LOC: EDBD 16:51 → EMR 17:20
DX: G89.29 Other chronic pain (principal); R07.9 Chest pain, unspecified; J44.9 Chronic obstructive pulmonary disease, unspecified; M94.0 Chondrocostal junction syndrome [Tietze]; F11.20 Opioid dependence, uncomplicated; I10 Essential (primary) hypertension; Z88.5 Allergy status to narcotic agent
CPT/HCPCS: 36415; 71045; 80053; 80307; 82550; 82553; 84484; 85025; 85379; 93005; 99284; J8499